=== PATIENT | male | born 1985 | race Two or more races ===

== ENCOUNTER 2017-03-09 20:10 | Emergency (ER) | payer MEDICAID ==
[~2017-03-09] VITALS: Ht 170.2 cm; Wt 100.0 kg
[2017-03-09 21:14] LABS: BASOPHILS % 0.8 % (0.0-2.0); EOSINOPHILS % 2.1 % (0.0-5.0); HEMATOCRIT. 43.9 % (42.0-52.0); HEMOGLOBIN. 14.8 g/dL (14.0-18.0); LYMPHOCYTES % 31.6 % (20.0-50.0); MEAN CORPUSCULAR HEMOGLOBIN 30.3 pg (28.0-32.0); MEAN PLATELET VOLUME 7.9 fl (7.4-10.4); MONOCYTES % 7.8 % (2.0-8.0); NEUTROPHILS % 57.7 % (40.0-76.0); PLATELET 253 x1000/uL (130-400); RED BLOOD CELL COUNT 4.87 mill/uL (4.7-6.1); RED CELL DISTRIBUTION WIDTH 13.5 % (11.6-14.6)
[2017-03-09 21:21] LABS: INR 1.1; PARTIAL THROMBOPLASTIN TIME 28.7 sec (23.4-31.0); PROTHROMBIN TIME 11.2 sec (9.4-11.6)
[2017-03-09 21:30] LABS: CARBON DIOXIDE 26 mEq/L (21-32); CHLORIDE 105 mEq/L (98-107); CREATINE KINASE 136 IU/L (39-308); TROPONIN I < 0.02 ng/mL (0.00-0.04)
[2017-03-09 21:31] LABS: CREATINE KINASE MB FRACTION 0.9 ng/mL (0.5-3.6)
[2017-03-09] MEDS ORDERED: KETOROLAC 30MG/ML VIAL IV ONE (23:00)
[2017-03-09 23:01] LABS: *AMPHETAMINES SCREEN URINE NEGATIVE (NEGATIVE); *BARBITURATES SCREEN URINE NEGATIVE (NEGATIVE); *BENZODIAZEPINES SCREEN URINE NEGATIVE (NEGATIVE); *COCAINE SCREEN URINE NEGATIVE (NEGATIVE); CANNABINOID URINE SCREEN NEGATIVE (NEGATIVE); METHADONE URINE SCREEN NEGATIVE (NEGATIVE); OPIATES URINE SCREEN NEGATIVE (NEGATIVE); PHENCYCLIDINE URINE SCREEN NEGATIVE (NEGATIVE)
[2017-03-09] MEDS ORDERED: ENALAPRIL 5MG TABLET PO SCH (23:15)
[2017-03-09 23:16] VITALS: BP 147/100
== END 2017-03-10 00:55 | disposition home or self-care (01) ==
LOC: ER 22:30
DX: R07.2 Precordial pain (principal); R53.1 Weakness; R53.81 Other malaise; I10 Essential (primary) hypertension; Z88.8 Allergy status to other drugs, medicaments and biological substances
CPT/HCPCS: 36415; 71010; 80053; 80305; 82550; 82553; 83690; 83735; 83880; 84484; 85025; 85610; 85730; 93005; 99285; Z7610